=== PATIENT | male | born 1950 | race Caucasian/White ===

== ENCOUNTER 2023-10-28 05:37 | Day surgery (SDC) | payer MEDICARE, OTHER, SELFPAY ==
[2023-10-28] VITALS (8 sets, daily range): BP systolic 91–117; BP diastolic 50–66; PULSE 51–63; RESP 14–18; TEMP 36.3–36.6; O2SAT 95–99; BMI 21.6
--- NOTE | 2023-10-28 | COLBX_PTH ---
PATIENT: CHELSEA CLAIRE LOC: EN U#:[id number] AGE/SX: 72/M ROOM: RE10/28/[address]: Dr. Juan Luis Grant MD : 1950 BED: DIS: 10/28/2023 SPEC #: [id number] RECD: 10/28/23 13:45 STATUS: BONNIE EFRAIN #: [id number] ABE: 10/28/23 00:[address]: Juan Luis Grant DEPT: SURGICAL PATHOLOGY RECD BY: Benson Lindo ENTERED: 10/28/23 13:45 SP TYPE: COLON BX OTHR DR: Dr. Fei Ross, Tissues: A - Sigmoid colon biopsy B - Rectum, NOS Procedures: Surgery Specimen Level IV HEADER OPERATION: Colonoscopy with biopsy PRE-OP DIAGNOSIS: Encounter for screening for malignant neoplasm of colon TISSUE SUBMITTED: A- Distal sigmoid polyp biopsies. B- Rectal polyp biopsies MICROSCOPIC DIAGNOSIS A. Distal sigmoid colon polyp, biopsy: Fragments of hyperplastic polyp. B. Rectal polyp, biopsy: Fragments of hyperplastic polyp. / 10/31/2023 MICROSCOPIC DESCRIPTION Slides are reviewed. GROSS DESCRIPTION A. Received in fixative is one container labeled with the patient's name and designated Distal sigmoid polyp x6. The specimen consists of multiple irregular fragments of light haines soft tissue that in aggregate measure 1.5 x 0.5 x 0.1 cm. The specimen is totally submitted in one cassette. B. Received in fixative is one container labeled with the patient's name and designated Rectal polyps x3. The specimen consists of three irregular fragments of light haines soft tissue that in aggregate measure 0.6 x 0.2 x 0.1 cm. The specimen is totally submitted in one cassette. / 10/28/2023 TC:5 [facility]:[id number]
--- NOTE | 2023-10-28 06:01 | HP.PCM_ITS ---
[facility] - General General Date of Service: 10/28/23 Chief Complaint: Screening for intestinal cancer HPI Narrative CHELSEA CLAIRE, is a 72 M who presents via open access today. Presents for surveillance colonoscopy. Both of his parents had a history of colon cancer. The patient's most recent colonoscopy was by Dr. Lex Baumann in 2017. The patient does have a history of colon polyps.He has no complaints, health has been stable. [facility] Medical History (Updated 10/26/23 @ 10:35 by Heather Arroyo) Pulmonary nodule Wears glasses Alcohol use High cholesterol Former smoker Glaucoma Family history of colon cancer in father Family history of colon cancer in mother Personal history of colonic polyps Home Medications ?Medication ?Instructions ?Recorded ?Last Taken ?Type citalopram 20 mg tablet 20 mg PO DAILY 11/11/14 10/27/23 History gabapentin 300 mg capsule 600 mg PO QHS 11/11/14 10/26/23 History loratadine 10 mg tablet (Allergy 10 mg PO DAILY 11/11/14 10/27/23 History Relief (loratadine)) trazodone 50 mg tablet 50 mg PO QHS 11/11/14 10/26/23 History guaifenesin 600 mg tablet, 600 mg PO BID PRN Cough ##10 11/12/14 Unknown Rx extended release 12 hr (Mucus Relief ER) sodium chloride 0.65 % nasal spray 2 spray TID PRN PRN NASAL DRYNESS 11/12/14 Unknown Rx aerosol (Deep Sea Nasal) ##0 brimonidine 0.2 % eye drops 1 drp ophthalmic (eye) TID 10/03/23 10/27/23 History calcium carbonate (Calcium 600) 600 mg PO DAILY 10/03/23 10/27/23 History dorzolamide 22.3 mg-timolol 6.8 1 drp ophthalmic (eye) TID 10/03/23 10/27/23 History mg/mL eye drops (Cosopt) ezetimibe 10 mg tablet (Zetia) 10 mg PO DAILY 10/03/23 10/27/23 History latanoprost 0.005 % eye drops 1 drp ophthalmic (eye) QHS 10/03/23 10/27/23 History multivitamin 1 tab PO DAILY 10/03/23 10/27/23 History Allergy/AdvReac Type Severity Reaction Status Date / Time Penicillins (PCN) Allergy Intermediate Hives Verified 10/28/23 06:18 azithromycin (From Zithromax) Allergy Rash Verified 10/28/23 06:17 simvastatin (From Zocor) Allergy Other Verified 10/28/23 06:17 Family History (Updated 10/03/23 @ 13:17 by Jillian Romo) Mother Colon cancer Father Colon cancer Surgical History (Updated 10/03/23 @ 13:17 by Jillian Romo) History of bilateral carpal tunnel release Hx of colonoscopy with polypectomy Social History (Updated 10/03/23 @ 13:18 by Jillian Romo) household members: spouse current occupational status: retired Smoking Status: Former smoker substance use type: does not use ROS Constitutional Constitutional: Reports systems reviewed and no addt'l complaints, except as documented Cardiovascular Cardiovascular: Denies chest pain Respiratory/Chest Respiratory/Chest: Denies shortness of breath at rest Gastrointestinal Gastrointestinal: Denies abdominal pain, change in bowel habits, hematochezia or melena Physical Exam Const alert, oriented x3 and no apparent distress General Appearance: cooperative and comfortable Eyes General Eye: normal appearance of both eyes Neck General: normal visual inspection Chest inspection of chest normal Resp Effort and Inspection: able to speak in complete sentences and symmetric chest movement Auscultation: clear to auscultation bilaterally Cardio regular rate and regular rhythm GI soft to palpation, non-tender and non-distended Extremity no calf tenderness Neuro oriented x3 Psych thought process normal Assessment & Plan Assessment/Plan (1) Encounter for screening for malignant neoplasm of colon: PLAN: The patient presents today for surveillance colonoscopy. He presents via open access. He is aware of the technique, benefit, risk, alternatives. Has had an opportunity to ask and have questions answered. We will proceed as noted. Juan Luis Grant M.D., F.A.C.S.
[2023-10-28] MEDS: Lactated Ringers 1,000 ML 15 ML IV (06:28)
--- NOTE | 2023-10-28 07:06 | PRE.ANES_ITS ---
ASA Classification* ASA Classification ASA Classification: 2 Assessment & Plan Anesthesia* Anesthesia Assessment Anesthesia Assessment: Discussed sedation and/or anesthesia options, risks, benefits, and alternatives with patient/parents/legal guardian/POA. Questions invited. The patient/parents/legal guardian/POA seems to understand and agrees to proceed with anesthesia plan. Reviewed the physical assessment, medical history, allergy history and patient home medications list prior to surgery/procedure/anesthetic and documented any changes. Performed airway and anesthesia risk assessments. Anesthesia Type Anesthesia Type: MAC Anesthesia Focused Assessment* Temperature: 97.4 F Pulse Rate: 62 Blood Pressure: 91/50 Respiratory Rate: 18 Pulse Ox: 95 Airway Assessment Mouth opens: >3 cm Mallampati Score: II Focused Labs Anesthesia Preop lab: CBC WBC 5.6 K/mm3 (4.4-11.0) 11/12/14 05:16 RBC 3.47 M/mm3 (4.6-6.2) L 11/12/14 05:16 Hgb 10.9 g/dl (13.0-16.5) L 11/12/14 05:16 Hct 31.8 % (40-54) L 11/12/14 05:16 Plt Count 257 K/mm3 (150-450) 11/12/14 05:16 CHEMISTRY Potassium 3.4 mmol/L (3.5-5.1) L 11/12/14 05:16 Sodium 139 mmol/L (136-145) 11/12/14 05:16 Magnesium 1.7 mg/dL (1.8-2.4) L 11/12/14 05:16 BUN 11 mg/dL (7-18) 11/12/14 05:16 Creatinine 0.54 mg/dL (0.70-1.30) L 11/12/14 05:16 Glucose 119 mg/dL (70-110) H 11/12/14 05:16 COAG Pre-Assessment Diagnosis/Proposed Procedure Planned Operative Procedure(s): CSCOPE OA Anesthesia History Anesthesia History - lighting specialist: Anesthesia History - lighting specialist Hx Hospitalization No 10/26/23 10:29 Any Problems With Anesthesia No 10/26/23 10:29 Cholinesterase deficiency No 10/26/23 10:29 You/Your Family Experience No 10/26/23 10:29 fever (hyperthermia) with Relationship Recent Exposure to Contagious No 10/28/23 06:21 Disease Does patient have nerve No 10/26/23 10:29 stimulator Patient instructed to have device shut off --Does patient have Pacemaker No 10/28/23 06:23 or ICD? When Was Last Pacemaker Check QUESTION #4 FULL TEXT: You/Your Family Experience fever (hyperthermia) with Anesthesia Last Oral Intake Last Oral intake: Last Oral Intake NPO since 21:00 10/28/23 06:23 Meds taken in AM with sips of No 10/28/23 06:23 water? Meds patient instructed to take am of surgery PONV PONV - lighting specialist: PONV - lighting specialist Female No 10/26/23 10:29 HX of Motion Sickness No 10/26/23 10:29 HX of N/V After Surgery No 10/26/23 10:29 Non-Smoker Yes 10/26/23 10:29 Duration of Surgery greater No 10/26/23 10:29 than 60 minutes Number of Risk Factors 1 10/26/23 10:29 PONV Score Low Risk 10/26/23 10:29 Height & Weight Height & Weight: Anesthesia: Height & Weight Height 5 ft 5 in 10/28/23 06:23 Weight: 58.967 kg 10/28/23 06:23 Body Mass Index (BMI) 21.6 10/28/23 06:23 Respiratory Assessment Respiratory Assessment - lighting specialist: Respiratory Tract Infection Hx - lighting specialist Hx Respiratory Tract Infection No 10/26/23 10:29 STOP Sleep Apnea STOP Sleep Apnea - lighting specialist: STOP Sleep Apnea - lighting specialist Hx Hypertension No 10/26/23 10:29 Hx Sleep Apnea No 10/26/23 10:29 CPAP No 11/11/14 10:24 BIPAP No 11/11/14 10:24 Do you snore loudly (louder Yes 10/26/23 10:29 than talking or can be heard Do you often feel tired/ No 10/26/23 10:29 fatigued/ sleepy during daytime? Has anyone observed you stop No 10/26/23 10:29 breathing during sleep? STOP Results Negative 10/26/23 10:29 QUESTION #5 FULL TEXT : Do you snore loudly (louder than talking or can be heard through closed doors)? 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 Specify any problems Hx of Preganancy in last 3 N/A 10/26/23 10:29 Months Nurse Filling Out Transfusion DSCHRIBER 10/26/23 10:29 & Questions: Date: 10/26/23 10/26/23 10:29 Time: 10:30 10/26/23 10:29 Patient unable to answer at this time (ie. confused, unrespo /Reproduction History /Reproductive History - lighting specialist: /Reproductive Hx- lighting specialist Hx Now No 10/26/23 10:29 Gestational Age (in weeks): EDC: Hx Hx Para Hx Section SAB No 10/26/23 10:29 Active Medications Active Medications: Current Medications Generic Name Dose Route Start Last Admin Trade Name Freq PRN Reason Stop Dose Admin Lactated Ringer's 1,000 mls @ 15 mls/hr 10/28/23 06:15 10/28/23 06:28 IV 15 mls/hr .Q48H BECCA Administration PFSH Medical History Pulmonary nodule Wears glasses Alcohol use High cholesterol Former smoker Glaucoma Family history of colon cancer in father Family history of colon cancer in mother Personal history of colonic polyps Home Medications ?Medication ?Instructions ?Recorded ?Last Taken ?Type citalopram 20 mg tablet 20 mg PO DAILY 11/11/14 10/27/23 History gabapentin 300 mg capsule 600 mg PO QHS 11/11/14 10/26/23 History loratadine 10 mg tablet (Allergy 10 mg PO DAILY 11/11/14 10/27/23 History Relief (loratadine)) trazodone 50 mg tablet 50 mg PO QHS 11/11/14 10/26/23 History guaifenesin 600 mg tablet, 600 mg PO BID PRN Cough ##10 11/12/14 Unknown Rx extended release 12 hr (Mucus Relief ER) sodium chloride 0.65 % nasal spray 2 spray TID PRN PRN NASAL DRYNESS 11/12/14 Unknown Rx aerosol (Deep Sea Nasal) ##0 brimonidine 0.2 % eye drops 1 drp ophthalmic (eye) TID 10/03/23 10/27/23 History calcium carbonate (Calcium 600) 600 mg PO DAILY 10/03/23 10/27/23 History dorzolamide 22.3 mg-timolol 6.8 1 drp ophthalmic (eye) TID 10/03/23 10/27/23 History mg/mL eye drops (Cosopt) ezetimibe 10 mg tablet (Zetia) 10 mg PO DAILY 10/03/23 10/27/23 History latanoprost 0.005 % eye drops 1 drp ophthalmic (eye) QHS 10/03/23 10/27/23 History multivitamin 1 tab PO DAILY 10/03/23 10/27/23 History Allergy/AdvReac Type Severity Reaction Status Date / Time Penicillins (PCN) Allergy Intermediate Hives Verified 10/28/23 06:18 azithromycin (From Zithromax) Allergy Rash Verified 10/28/23 06:17 simvastatin (From Zocor) Allergy Other Verified 10/28/23 06:17 Family History Mother Colon cancer Father Colon cancer Surgical History History of bilateral carpal tunnel release Hx of colonoscopy with polypectomy Social History household members: spouse current occupational status: retired Smoking Status: Former smoker substance use type: does not use Review of Systems (Anesthesia) ROS Narrative System reviewed and no additional complaints, except as documented.
--- NOTE | 2023-10-28 08:10 | OP.CCLET_ITS ---
10/28/2023 Fei Ross, Do Re : Colonoscopy procedure for Daniel Robins Dear Dr. Ross This procedure was performed on Saturday, October 28, 2023. My impressions and recommendations are as follows: Impressions : - Non-thrombosed internal hemorrhoids, internal hemorrhoids that prolapse with straining, but spontaneously regress to the resting position (Grade II) and enlarged prostate found on digital rectal exam. - Diverticulosis in the sigmoid colon and in the descending colon. - Six 3 to 4 mm polyps in the distal sigmoid colon, removed with a cold biopsy forceps. Resected and retrieved. - Three 2 to 3 mm polyps in the proximal rectum, removed with a cold biopsy forceps. Resected and retrieved. Recommendations : - Repeat colonoscopy in 5 years for surveillance based on pathology results. - Telephone my office for pathology results in 1 week. - Continue present medications. My findings are described in the full procedure note, which is enclosed. If I can be of further assistance, please feel free to contact me at Doctor phone number(s): Work: . Sincerely, Juan Luis Grant MD 10/28/2023 8:10:02 AM This report has been signed electronically.
--- NOTE | 2023-10-28 08:10 | OP.COLON_ITS ---
Patient Name: Daniel Robins Procedure Date: 10/28/2023 7:35 AM Date of : 1950 Age: 72 Procedure: Colonoscopy Indications: Family history of colon cancer in a first-degree relative before age 60 years Providers: Juan Luis Grant MD Referring MD: Fei Ross Do Medicines: See the Anesthesia note for documentation of the administered medications Patient Profile: Last Colonoscopy: 2016. Complications: No immediate complications. Procedure: Pre-Anesthesia Assessment: - Prior to the procedure, a History and Physical was performed, and patient medications and allergies were reviewed. The patient's tolerance of previous anesthesia was also reviewed. The risks and benefits of the procedure and the sedation options and risks were discussed with the patient. All questions were answered, and informed consent was obtained. Prior Anticoagulants: The patient has taken no anticoagulant or antiplatelet agents. ASA Grade Assessment: II - A patient with mild systemic disease. After reviewing the risks and benefits, the patient was deemed in satisfactory condition to undergo the procedure. After I obtained informed consent, the scope was passed under direct vision. Throughout the procedure, the patient's blood pressure, pulse, and oxygen saturations were monitored continuously. The colonoscope was introduced through the anus and advanced to the cecum, identified by appendiceal orifice and ileocecal valve. The colonoscopy was performed without difficulty. The patient tolerated the procedure well. The quality of the bowel preparation was good. The ileocecal valve and the appendiceal orifice were photographed. Scope In: 7:40:59 AM Scope Withdrawal Time 0 hours 16 minutes 23 seconds Scope Out: 8:04:49 AM Total Procedure Duration Time 0 hours 23 minutes 50 seconds Findings: The digital rectal exam findings include non-thrombosed internal hemorrhoids, internal hemorrhoids that prolapse with straining, but spontaneously regress to the resting position (Grade II) and enlarged prostate. Multiple diverticula were found in the sigmoid colon and descending colon. Six sessile polyps were found in the distal sigmoid colon. The polyps were 3 to 4 mm in size. These polyps were removed with a cold biopsy forceps. Resection and retrieval were complete. Three sessile polyps were found in the proximal rectum. The polyps were 2 to 3 mm in size. These polyps were removed with a cold biopsy forceps. Resection and retrieval were complete. Impression: - Non-thrombosed internal hemorrhoids, internal hemorrhoids that prolapse with straining, but spontaneously regress to the resting position (Grade II) and enlarged prostate found on digital rectal exam. - Diverticulosis in the sigmoid colon and in the descending colon. - Six 3 to 4 mm polyps in the distal sigmoid colon, removed with a cold biopsy forceps. Resected and retrieved. - Three 2 to 3 mm polyps in the proximal rectum, removed with a cold biopsy forceps. Resected and retrieved. Recommendation: - Repeat colonoscopy in 5 years for surveillance based on pathology results. - Telephone my office for pathology results in 1 week. - Continue present medications. Procedure Code(s): --- Professional --- 55025, Colonoscopy, flexible; with biopsy, single or multiple Diagnosis Code(s): --- Professional --- K64.1, Second degree hemorrhoids D12.5, Benign neoplasm of sigmoid colon D12.8, Benign neoplasm of rectum Z80.0, Family history of malignant neoplasm of digestive organs N40.0, Benign prostatic hyperplasia without lower urinary tract symptoms K57.30, Diverticulosis of large intestine without perforation or abscess without bleeding CPT copyright 2021 [employer]. All rights reserved. The codes documented in this report are preliminary and upon kidney puller review may be revised to meet current compliance requirements. Juan Luis Grant MD 10/28/2023 8:10:02 AM This report has been signed electronically. Number of Addenda: 0 Note Initiated On: 10/28/2023 7:35 AM
--- NOTE | 2023-10-28 08:11 | PCM.POST.ANE ---
Anesthesia: Postop Eval I Current Vital Signs Temperature: 97.6 F Pulse Rate: 54 Blood Pressure: 117/65 Respiratory Rate: 14 Pulse Ox: 98 Oxygen Delivery Method: Room Air Assessment Airway patent: Yes Spontaneous unlabored respirations: Yes Mental status: Asleep nausea: No Vomiting: No Anesthesia Complication: No Fluid Hydration Crystalloid volume administer (ml): 800 Total IV fluid infused: 800 Progress Note Anesthesia document: Postop Eval 1 completed: Yes
--- NOTE | 2023-10-28 13:35 | PCM.POSTANE2 ---
Anesthesia Postop Eval I Sum Postop Eval Completion status Anesthesia document: Postop Eval 1 completed: Yes Anesthesia Postop Eval I Summary Anesthesia Postop Eval I Summary: Anesthesia Postop Eval I: Assessment Summary Airway patent Yes 10/28/23 08:12 [email or web address] Spontaneous unlabored Yes 10/28/23 08:12 [email or web address] respirations Mental status Asleep 10/28/23 08:12 [email or web address] nausea No 10/28/23 08:12 [email or web address] Vomiting No 10/28/23 08:12 [email or web address] Anesthesia Postop Eval I: Fluid Summary Crystalloid volume administer 800 10/28/23 08:12 [email or web address] (ml) Colloids volume administered ( ml) Blood Product volume administered (ml) Total IV fluid infused 800 10/28/23 08:12 [email or web address] Anesthesia Postop Eval I: Summary Notes Anesthesia Complication No 10/28/23 08:12 [email or web address] Anesthesia Complication Comment: Post-operative progress note Anesthesia: Postop Eval II Evaluation Mental status: Awake and Calm Pain Level: 0 nausea: No Vomiting: No Complications Anesthesia Complication: No
== END 2023-10-28 08:53 | disposition home or self-care (01) ==
LOC: EN 05:39 → AC 05:41
PROVIDERS: PCP Internal Medicine; Referring Provider Internal Medicine; Visit Provider Surgery
PROC: 0DJD8ZZ Inspection of Lower Intestinal Tract, Via Natural or Artificial Opening Endoscopic (ICD-10-PCS; CPT 45378; principal; 2023-10-28 07:25)
DX: Z12.11 Encounter for screening for malignant neoplasm of colon (principal); K64.1 Second degree hemorrhoids; K57.30 Diverticulosis of large intestine without perforation or abscess without bleeding; K63.5 Polyp of colon; K62.1 Rectal polyp; E78.00 Pure hypercholesterolemia, unspecified; N40.0 Benign prostatic hyperplasia without lower urinary tract symptoms; Z79.899 Other long term (current) drug therapy; Z86.010 Personal history of colon polyps; Z87.891 Personal history of nicotine dependence; Z80.0 Family history of malignant neoplasm of digestive organs
CPT/HCPCS: 45380; 88305; J7120; J2405